=== PATIENT | male | born 1985 | race Caucasian/White ===

== ENCOUNTER 2022-03-21 09:43 | Emergency (ER) | payer OTHER ==
--- NOTE | 2022-03-21 09:55 | NUR ---
CALLED IN ED WAITING ROOM, NO RESPONSE.
--- NOTE | 2022-03-21 10:25 | NUR ---
not able to triage patient , he left per security .
== END 2022-03-21 10:28 | disposition left against medical advice (07) ==
LOC: ER 09:48
DX: Z53.21 Procedure and treatment not carried out due to patient leaving prior to being seen by health care provider (principal)